=== PATIENT | male | born 1960 | race Caucasian/White ===

== ENCOUNTER 2019-01-16 05:32 | Inpatient (IN) | payer OTHER ==
[~2019-01-16] VITALS: Ht 172.7 cm; Wt 78.0 kg
--- NOTE | 2019-01-16 05:45 | NUR ---
MANAGER LSWDISTRIBUTION DRIVER NOTES Received patient from [facility] via gurney accompanied by 2 egg separator. Admitted patient to TELE 310-1 due to Seizures under the service of FINANCE EFFECTIVENESS MANAGER Shoshana Saldaña. Assisted patient comfortably to bed. Admission routine done. Belongings inventory completed by the DIRECTOR OF COUNTERINTELLIGENCE. Initial skin assessment done, photos taken and documented. Admission orders noted and carried out. Put on tele monitor with Sinus Tach noted. Initiated IVF NS @ 75ml/hr as ordered. Kept patient on bed comfortably, clean, dry and warmth. Kept bed low and locked, siderails x2 up, call light within easy reach.
[2019-01-16] MEDS ORDERED: MAGNESIUM HYDROXIDE 30 ML UDC PO PRN (06:00)
[2019-01-16] MEDS ORDERED: ZOLPIDEM TARTRATE 5 MG TABLET PO PRN (06:00)
[2019-01-16] MEDS ORDERED: Z GUARD REMEDY 2 OZ OINT TP PRN (06:00)
[2019-01-16] MEDS ORDERED: ACETAMINOPHEN 325 MG TABLET PO PRN (06:00)
[2019-01-16 06:07] VITALS: BP 137/83
[2019-01-16] MEDS: IV NS 0.9% 1,000 ML IV PRN ×2 (06:22→22:00)
--- NOTE | 2019-01-16 06:48 | NUR ---
PAINT SUPERVISOR CLOSING NOTES No complaints made at this time. Patient asleep on bed with O2 inhalation @ 3LPM to keep SpO2 > 94%. With tele monitor in place with SR at this time.
--- NOTE | 2019-01-16 07:26 | NUR ---
RN OPENING NOTE PT WAS RECEIVED IN BED AT LOWEST AND LOCKED POSITION WITH SIDE RAILS UPX2, A/O X3-4, BREATHING EVEN AND UNLABORED ON 3L VIA NC, NO CURRENT COMPLAINTS OF ANY DISTRESS OR PAIN NOTED, ON TELE MONITOR NOTED TO BE SR, IV IS PATENT AND INTACT, SAFETY PRECAUTIONS IN PLACE, CALL LIGHT WITHIN REACH, WILL MONITOR ACCORDINGLY.
[2019-01-16 07:52] LABS: BASOPHILS % (AUTO) 0.7 % (0.0-2.0); EOSINOPHILS % (AUTO) 1.3 % (0.0-6.0); HEMATOCRIT 35 % (39-51); LYMPHOCYTES # (AUTO) 0.9 /CMM (0.8-4.8); LYMPHOCYTES % (AUTO) 15.6 % (20.0-44.0); MEAN CORPUSCULAR HGB CONC 35 g/dl (31.0-36.0); MEAN CORPUSCULAR VOLUME 98 fL (80-96); MONOCYTES # (AUTO) 0.3 /CMM (0.1-1.30); MONOCYTES % (AUTO) 5.6 % (2.0-12.0); NEUTROPHILS # (AUTO) 4.4 /CMM (1.8-8.9); NEUTROPHILS % (AUTO) 76.8 % (43.0-81.0); PLATELET COUNT (AUTO) 130 /CMM (150-450); RED BLOOD CELL COUNT(AUTO) 3.53 MIL/uL (4.5-6.0); WHITE BLOOD COUNT (AUTO) 5.7 K/uL (4.3-11.0)
[2019-01-16 08:00] VITALS: BP 131/72
[2019-01-16] MEDS: FOLIC ACID 1 MG TABLET PO SCH (08:05)
[2019-01-16] MEDS: NICOTINE PATCH (21MG) 21 MG PATCH.TD24 TD SCH (08:05)
[2019-01-16] MEDS: THIAMINE HCL 100 MG TABLET PO SCH (08:05)
[2019-01-16] MEDS: LEVETIRACETAM (250 MG) 250 MG TABLET PO SCH ×2 (08:05→20:19)
[2019-01-16 08:06] LABS: CALCIUM, SERUM 7.6 mg/dL (8.5-10.1); MAGNESIUM 1.9 mg/dL (1.8-2.4); PHOSPHORUS 2.2 mg/dL (2.5-4.9)
[2019-01-16] MEDS ORDERED: NEUTRA PHOS 1 POWD.PACKET PO ONE (11:30)
[2019-01-16] MEDS: LORAZEPAM INJ 2 MG/ML VIAL IV PRN ×2 (13:27→22:09)
--- NOTE | 2019-01-16 13:28 | NUR ---
RN NOTE ATIVAN GIVEN AT THIS TIME, WILL MONITOR ACCORDINGLY
[2019-01-16 16:00] VITALS: BP 134/73
--- NOTE | 2019-01-16 18:22 | NUR ---
RN CLOSING NOTE PT IN BED AT LOWEST AND LOCKED POSITION WITH SIDE RAILS UPX2, A/O X3-4, BREATHING EVEN AND UNLABORED ON 3L VIA NC, NO CURRENT COMPLAINTS OF ANY DISTRESS OR PAIN NOTED, IV IS PATENT AND INTACT, SAFETY PRECAUTIONS IN PLACE, CALL LIGHT WITHIN REACH, ALL NEEDS ATTENDED TO, WILL ENDORSE TO REINFORCING IRON WORKER HELPER RN FOR AMADO.
--- NOTE | 2019-01-16 19:37 | NUR ---
MS/RN OPENING NOTES RECEIVED PATIENT IN BED, RESTING COMFORTABLY IN BED, CAN VERBALIZE NEEDS, SKIN WARM TO TOUCH, NO GRIMACE OR GUARDING OBSERVED AND VERBALIZED. ON ROOM AIR ALERT, ORIENTED X3, ASPIRATIONS PRECAUTIONS, STOOL WAS COLLECTED FOR CDIFF PROTOCOL. WITH RIGHT ELBOW SWOLLEN, ON CARDIAC DIET, ASPIRATIONS PRECAUTION, RIGHT SAC GAUGE 20, IV NS RUNNING AT 75 ML/HR, ON NEEDED ATIVAN FOR ANY S/S OF SEIZURES, WILL CONTINUE TO MONITOR, BED LOCKED, CALL LIGHTS WITHIN REACH. WILL MONITOR.
[2019-01-16 20:00] VITALS: BP 133/76
--- NOTE | 2019-01-16 20:40 | NUR ---
left fore arm iv inserted gauge22 after 2 attempts. successful. Patient tolerated well. Reported medication from home to follow up in am, reported pcp from [facility] with following meds: ventolin, spiriva inhaler, atorvastatin vitamin b1, folic acid, laratadine 10mg, propanol 10mg, keppra 500mg/will enter for medication to report and be reconciled.
[2019-01-16] MEDS ORDERED: ALBU18HF2 INH (20:47)
[2019-01-16] MEDS ORDERED: PROP10TA10 PO ×2 (20:53)
[2019-01-16] MEDS ORDERED: ATOR10TA PO (20:53)
[2019-01-16] MEDS ORDERED: LORA-588 PO (20:53)
[2019-01-16] MEDS ORDERED: LEVE500T9 PO (20:54)
--- NOTE | 2019-01-16 22:13 | NUR ---
MS/RN NOTES PATIENT WITH TREMORS, SHAKING, NEEDED ATIVEN 1 MG/0.5ML IVP GIVEN SLOWLY, WILL MONITOR FOR SAFETY.
--- NOTE | 2019-01-17 06:24 | NUR ---
310-1 PATIENT ABLE TO SLEEP DUTING THE NIGHT, ASSISTED TO BATHROOM, ON IV HYDRATION MONITORED FOR ANY CHANGES OR SEIZURE. KEPT COMFORTABLE. BRF LOCKED, CALL IGHTS WITHIN REACH. WILL ENDORSE TO AM RN FOR AMADO.
--- NOTE | 2019-01-17 07:07 | NUR ---
RN OPENING NOTE PT WAS RECEIVED RESTING IN BED AT LOWEST AND LOCKED POSITION WITH SIDE RAILS UPX2, A/O X3-4, BREATHING EVEN AND UNLABORED ON NC, NO S/S OF ANY DISTRESS OR PAIN NOTED, IV IS PATENT AND INTACT, SAFETY PRECAUTIONS IN PLACE, CALL LIGHT WITHIN REACH, WILL MONITOR ACCORDINGLY.
[2019-01-17 07:16] LABS: CALCIUM, SERUM 8.1 mg/dL (8.5-10.1); CREATININE 0.9 mg/dL (0.6-1.3); PHOSPHORUS 2.4 mg/dL (2.5-4.9); POTASSIUM 3.3 mmol/L (3.5-5.1)
[2019-01-17] MEDS: ONDANSETRON HCL/PF 4 MG/2 ML VIAL IVP PRN ×3 (07:35→22:41)
--- NOTE | 2019-01-17 07:39 | NUR ---
RN NOTE PATIENT GIVEN ZOFRAN AT THIS TIME DUE TO NAUSEA AND VOMITING, WILL MONITOR ACCORDINGLY.
[2019-01-17 08:00] VITALS: BP 120/78
[2019-01-17] MEDS: THIAMINE HCL 100 MG TABLET PO SCH (08:06)
[2019-01-17] MEDS: LORAZEPAM INJ 2 MG/ML VIAL IV PRN ×2 (08:06→22:40)
[2019-01-17] MEDS: LEVETIRACETAM (250 MG) 250 MG TABLET PO SCH ×2 (08:06→20:01)
[2019-01-17] MEDS: NICOTINE PATCH (21MG) 21 MG PATCH.TD24 TD SCH (08:06)
[2019-01-17] MEDS: FOLIC ACID 1 MG TABLET PO SCH (08:06)
--- NOTE | 2019-01-17 08:06 | NUR ---
RN NOTE ATIVAN GIVEN AT THIS TIME DUE TO PATIENT HAVING TREMORS, WILL MONITOR ACCORDINGLY
[2019-01-17] MEDS ORDERED: POTASSIUM CHLORIDE 20 MEQ TAB.PRT.SR PO SCH (10:00)
[2019-01-17] MEDS ORDERED: NEUTRA PHOS 1 POWD.PACKET PO ONE (11:00)
[2019-01-17] MEDS: HYDROCODONE/APAP 5/325MG 1 EACH TABLET PO PRN (11:03)
--- NOTE | 2019-01-17 11:03 | NUR ---
RN NOTE PT COMPLAIN OF RIGHT ELBOW PAIN AT THIS TIME, NORCO GIVEN, WILL MONITOR ACCORDINGLY.
[2019-01-17] MEDS: IV NS 0.9% 1,000 ML IV PRN (11:32)
[2019-01-17 16:00] VITALS: BP 143/80
--- NOTE | 2019-01-17 18:23 | NUR ---
RN CLOSING NOTE PT IN BED AT LOWEST AND LOCKED POSITION WITH SIDE RAILS UPX2, A/O X3-4, BREATHING EVEN AND UNLABORED ON 2L VIA NC, NO COMPLAINTS OF DISTRESS OR PAIN , IV IS PATENT AND INTACT, SAFETY PRECAUTIONS IN PLACE, CALL LIGHT WITHIN REACH, ALL NEEDS ATTENDED TO, WILL ENDORSE TO RIDES ATTENDANT RN FOR AMADO
--- NOTE | 2019-01-17 19:38 | NUR ---
MS/RN OPENING NOTES RECEIVED PATIENT IN BED, ABLE TO AMBULATE WITH MODERATE ASSISTANCE, PATIENT OBSERVE WEAK, AND TREMORS. WARM BLANKET PROVIDED. RESPIRATIONS EVEN AND UNLABORED, SKIN WAR, TO TOUCH. HAVING DIARRHEA, ON IV HYDRATION, WILL FOLLOW UP WITH MD. BED LOCKED, CALL LIGHTS WITHIN REACH, OFFERED AND PROVIDED FLUIDS, WILL MONITOR.RECEIVED ENDORSEMENT FROM AM RN FOR AMADO.
[2019-01-17 19:53] VITALS: BP 136/83
[2019-01-17 20:00] VITALS: BP 136/83
--- NOTE | 2019-01-17 21:07 | NUR ---
MS/RN NOTES MD CONTACTED AND INFORMED MULTIPLE BOWEL MOVEMENT, STOOL COLLECTED FOR CDIFF YESTERDAY RESULT STILL PENDING, NO NEW ORDER AT THIS TIME UNTIL RESULT RECEIVED.
--- NOTE | 2019-01-17 22:40 | NUR ---
MS/RN NOTES PATIENT WITH TREMORS, UNABLE TO RELAX, AND WITH CONSTANT NEED TO USE THE BATHROON DUE TO BOWEL MOVEMENT, ATIVAN GIVEN IVP AND ZOFRAN PATIENT HAD VOMITING EPISODEM RFA IV GAUGE 20 INSERTED, IV ON LFA REMOVED. WILL MONITOR.
--- NOTE | 2019-01-17 23:00 | NUR ---
ms/rn notes REPORTED FALL UNWITNESSED, NO GRIMACE OR BRUISES, NO PAIN REPORTED AND OBSERVED, MD MADE AWARE, TO FOLLOW UP.ORDERED FOR SITTER AND CNAGED ATIVAN DOSE.
--- NOTE | 2019-01-17 23:40 | NUR ---
patient temperature elevated, applie cooling measure, tyleno 650mg po given ny mouth. monitored.
[2019-01-18 00:03] LABS: BASOPHILS # (AUTO) 0.1 /CMM (0.0-0.2); BASOPHILS % (AUTO) 0.6 % (0.0-2.0); EOSINOPHILS % (AUTO) 0.2 % (0.0-6.0); HEMATOCRIT 38 % (39-51); HEMOGLOBIN 12.8 g/dL (13.5-17.5); MEAN CORPUSCULAR HGB CONC 34 g/dl (31.0-36.0); MEAN CORPUSCULAR VOLUME 98 fL (80-96); MONOCYTES # (AUTO) 0.6 /CMM (0.1-1.30); MONOCYTES % (AUTO) 5.9 % (2.0-12.0); NEUTROPHILS % (AUTO) 84.3 % (43.0-81.0); PLATELET COUNT (AUTO) 75 /CMM (150-450); RED BLOOD CELL COUNT(AUTO) 3.84 MIL/uL (4.5-6.0); WHITE BLOOD COUNT (AUTO) 10.6 K/uL (4.3-11.0)
[2019-01-18 00:12] LABS: CALCIUM, SERUM 8.1 mg/dL (8.5-10.1); CREATININE 1.3 mg/dL (0.6-1.3); POTASSIUM 3.5 mmol/L (3.5-5.1)
[2019-01-18] MEDS: LORAZEPAM INJ 2 MG/ML VIAL IV PRN ×2 (00:19→08:15)
[2019-01-18 01:13] LABS: LYMPHOCYTES % (MANUAL) 10 % (16-48); MONOCYTES % (MANUAL) 3 % (0-11.0); NEUTROPHILS % (MANUAL) 87 (42-76)
[2019-01-18 06:20] LABS: BASOPHILS % (AUTO) 0.5 % (0.0-2.0); EOSINOPHILS % (AUTO) 0.1 % (0.0-6.0); HEMATOCRIT 34 % (39-51); HEMOGLOBIN 11.8 g/dL (13.5-17.5); LYMPHOCYTES # (AUTO) 0.8 /CMM (0.8-4.8); LYMPHOCYTES % (AUTO) 8.1 % (20.0-44.0); MEAN CORPUSCULAR HGB CONC 35 g/dl (31.0-36.0); MEAN CORPUSCULAR VOLUME 98 fL (80-96); MONOCYTES # (AUTO) 0.7 /CMM (0.1-1.30); MONOCYTES % (AUTO) 7.3 % (2.0-12.0); NEUTROPHILS # (AUTO) 7.9 /CMM (1.8-8.9); PLATELET COUNT (AUTO) 66 /CMM (150-450); RED BLOOD CELL COUNT(AUTO) 3.49 MIL/uL (4.5-6.0); WHITE BLOOD COUNT (AUTO) 9.4 K/uL (4.3-11.0)
--- NOTE | 2019-01-18 06:30 | NUR ---
MS/RN NOTES PATIENT IN BED, RESTING COMFORTABLY WITH SITTER, PATIENT REQUIRE ASSISTANCE DUE TO ALCOHOL WITHRAWAL AND S/P FALL, WITH USE OF NEEDED ATIVAN, WEAK, AND TREMORS, WITH ONGOING CONCERN AND LOOSE BM, BED LOCKED CALL LIGTHS WITHIN REACH WILL ENDORSE TO AM RN FOR AMADO.
[2019-01-18 06:45] LABS: CALCIUM, SERUM 8.1 mg/dL (8.5-10.1); CREATININE 1.2 mg/dL (0.6-1.3); PHOSPHORUS 2.8 mg/dL (2.5-4.9); POTASSIUM 3.1 mmol/L (3.5-5.1)
--- NOTE | 2019-01-18 07:21 | NUR ---
RN OPENING NOTE PT WAS RECEIVED IN BED AT LOWEST AND LOCKED POSITION WITH SIDE RAILS UP X2, A/OX3 , BREATHING EVEN AND UNLABORED ON RA, NO CURRENT S/S OF ANY DISTRESS OR PAIN, IV IS PATENT AND INTACT, SITTER PRESENT AT BEDSIDE DUE TO REPORTED UNWITNESSED FALL LAST NIGHT ACCORDING TO WELDER EXPERIMENTAL RNJoshDIFF RESULTS STILL PENDING, SAFETY PRECAUTIONS IN PLACE, CALL LIGHT WITHIN REACH, WILL MONITOR ACCORDINGLY.
[2019-01-18 08:00] VITALS: BP 124/64
[2019-01-18] MEDS: NICOTINE PATCH (21MG) 21 MG PATCH.TD24 TD SCH (08:14)
[2019-01-18] MEDS: LEVETIRACETAM (250 MG) 250 MG TABLET PO SCH ×2 (08:14→22:07)
[2019-01-18] MEDS: FOLIC ACID 1 MG TABLET PO SCH (08:14)
[2019-01-18] MEDS: THIAMINE HCL 100 MG TABLET PO SCH (08:14)
[2019-01-18] MEDS: POTASSIUM CHLORIDE 20 MEQ TAB.PRT.SR PO SCH ×2 (09:51→10:45)
--- NOTE | 2019-01-18 10:53 | NUR ---
WOUND CARE CONSULT: PT PRESENTS WITH DRY ABRASIONS TO EARS AND RT ELBOW SWELLING WITH REDNESS, PRESENT ON ADMISSION. DEFER TO MD FOR ELBOW. RECOMMENDATIONS MADE FOR SKIN PROTECTION. DISCUSSED WITH NURSING STAFF. PT UP WITH P.T. AT THIS TIME. WILL SEE PRN.
--- NOTE | 2019-01-18 12:14 | NUR ---
Social service consult requested by LIAM Saldaña for living alone and ETOH abuse. Pt. is a 58 year old male who was admitted to [facility] for alcohol withdrawal. SW met with pt. bedside. Pt. was laying down in his bed. Pt. looks disheveled. Pt. displayed difficulties communicating and appeared to be withdrawing. Pt. appeared confused at times and was alert to person and place. Pt. states that he lives alone at [address], [place] [address]. His contact number is . Patients emergency contact is his son Aiden Viera at . SW inquired with patient regarding his alcohol use. Pt. stated that he consumes About a 12pk of beer each day. Pt. also states he drinks liquor ( rum and coke) when he has enough money to afford it. Pt. states that he has been drinking since he was 7 years old and last attended a treatment program about 5 years ago in [place]. Pt. states he also uses cigarettes, and smokes one and half pack a day. Pt. states he has a mental health diagnosis of depression and anxiety, and is receiving mental health care from his primary health care provider. Pt. denies suicidal ideation at this time. SW encouraged Pt. to go to a treatment program but Pt. states that he is not ready to participate in treatment, and declined further treatment services and referrals at this moment. hardboard factory worker will provide the following referrals: [facility], [address] [address], [facility], [address] [facility], [facility] [address], and [facility], [address] [place], [address]. in case pt. has more motivation for treatment.
--- NOTE | 2019-01-18 14:43 | NUR ---
RN NOTE RECEIVED A CALL FROM [facility] THAT PT IS POSITIVE FOR C.DIFF. ISOLATION PRECAUTIONS IMPLEMENTED, WILL MONITOR ACCORDINGLY.
--- NOTE | 2019-01-18 14:55 | NUR ---
RN NOTE DR. MIRZA PAGED AT THIS TIME. ORDER RECEIVED FOR FLAGYL 500MG Q8H PO. WILL IMPLEMENT ORDER AND CARRYOUT ACCORDINGLY.
[2019-01-18 16:00] VITALS: BP 119/58
[2019-01-18] MEDS: IV NS 0.9% 1,000 ML IV PRN (17:59)
--- NOTE | 2019-01-18 18:11 | NUR ---
RN CLOSING NOTE PT IN BED AT LOWEST AND LOCKED POSITION WITH SIDE RAILS UP X2, A/OX3 BREATHING EVEN AND UNLABORED, NO S/S OF ANY DISTRESS OR PAIN, IV IS PATENT AND INTACT, SITTER PRESENT AT BEDSIDE, PATIENT TESTED POSITIVE FOR C.DIFF AND ON ISOLATION, SAFETY PRECAUTIONS IN PLACE, CALL LIGHT WITHIN REACH, WILL ENDORSE TO ENRICHMENT TEACHER RN FOR AMADO.
--- NOTE | 2019-01-18 19:50 | NUR ---
MS RN NOTE: PATIENT RESTING IN BED, NO ACUTE DISTRESS NOTE, SITTER AT BEDSIDE. BREATHING EVEN AND UNLABORED, NO SOB NOTED. IV TO LFA IN PLACE. ISOLATION PRECAUTIONS OBSERVED. BED LOCKED AND IN LOWEST POSITION, CALL LIGHT IN REACH. WILL CONTINUE TO MONITOR.
[2019-01-18 20:15] VITALS: BP 107/69
[2019-01-18] MEDS: METRONIDAZOLE 500 MG TABLET PO SCH (22:07)
--- NOTE | 2019-01-19 04:15 | NUR ---
MS RN NOTE: PATIENT ACCIDENTALLY PULLED OUT IV TO LFA WHEN GETTING OUT OF BED. COVERED WITH GAUZE, PRESSURE APPLIED, AND SECURED WITH TAPE. NEW IV STARTED TO RFA #20 WITH GOOD BLOOD RETURN. WILL CONTINUE TO MONITOR.
[2019-01-19] MEDS: METRONIDAZOLE 500 MG TABLET PO SCH ×3 (05:43→21:28)
[2019-01-19] MEDS: IV NS 0.9% 1,000 ML IV PRN ×2 (05:44→17:23)
--- NOTE | 2019-01-19 06:30 | NUR ---
MS RN NOTE: PATIENT RESTING IN BED, NO ACUTE DISTRESS NOTE, SITTER AT BEDSIDE. BREATHING EVEN AND UNLABORED, NO SOB NOTED. IV TO LFA IN PLACE. ISOLATION PRECAUTIONS OBSERVED. BED LOCKED AND IN LOWEST POSITION, CALL LIGHT IN REACH. WILL ENDORSE TO DAY NURSE TO CONTINUE WITH PLAN OF CARE.
[2019-01-19 07:19] LABS: BASOPHILS % (AUTO) 0.5 % (0.0-2.0); EOSINOPHILS % (AUTO) 1.8 % (0.0-6.0); HEMATOCRIT 35 % (39-51); LYMPHOCYTES # (AUTO) 0.7 /CMM (0.8-4.8); LYMPHOCYTES % (AUTO) 15.4 % (20.0-44.0); MEAN CORPUSCULAR HGB CONC 35 g/dl (31.0-36.0); MEAN CORPUSCULAR VOLUME 98 fL (80-96); MONOCYTES # (AUTO) 0.8 /CMM (0.1-1.30); MONOCYTES % (AUTO) 16.9 % (2.0-12.0); NEUTROPHILS # (AUTO) 3.1 /CMM (1.8-8.9); NEUTROPHILS % (AUTO) 65.4 % (43.0-81.0); PLATELET COUNT (AUTO) 66 /CMM (150-450); RED BLOOD CELL COUNT(AUTO) 3.53 MIL/uL (4.5-6.0); WHITE BLOOD COUNT (AUTO) 4.7 K/uL (4.3-11.0)
[2019-01-19 07:33] LABS: CALCIUM, SERUM 8.4 mg/dL (8.5-10.1); CREATININE 0.9 mg/dL (0.6-1.3); POTASSIUM 3.1 mmol/L (3.5-5.1)
[2019-01-19 08:00] VITALS: BP_SYST 130; BP_DIAS 59; BP_DIAS 69
--- NOTE | 2019-01-19 08:00 | NUR ---
MS RN NOTE: PATIENT RESTING IN BED, DENIES PAIN AND IN NO ACUTE DISTRESS NOTED, SITTER AT BEDSIDE. BREATHING EVEN AND UNLABORED, NO SOB NOTED. IV TO RFA IN PLACE. C DIFF CONTACT ISOLATION PRECAUTIONS OBSERVED. BED LOCKED AND IN LOWEST POSITION, CALL LIGHT IN REACH. WILL CONTINUE WITH PLAN OF CARE.
[2019-01-19] MEDS: LEVETIRACETAM (250 MG) 250 MG TABLET PO SCH ×2 (09:11→21:28)
[2019-01-19] MEDS: THIAMINE HCL 100 MG TABLET PO SCH (09:11)
[2019-01-19] MEDS: FOLIC ACID 1 MG TABLET PO SCH (09:11)
[2019-01-19] MEDS: NICOTINE PATCH (21MG) 21 MG PATCH.TD24 TD SCH (09:12)
--- NOTE | 2019-01-19 11:00 | NUR ---
SEEN BY Briseida WHO STATED THAT THE PT NEEDS CONTACT GUARD ASSIST WITH AMBULATION. PT HAS A BEDSIDE COMMODE WELL.WILL MONITOR.
[2019-01-19] MEDS: POTASSIUM CHLORIDE 20 MEQ TAB.PRT.SR PO SCH ×2 (11:38→12:36)
[2019-01-19 13:40] LABS: BAND % (MANUAL) 1 % (0.0-5.0); EOSINOPHILS % (MANUAL) 1 % (0-4); LYMPHOCYTES % (MANUAL) 16 % (16-48); MONOCYTES % (MANUAL) 12 % (0-11.0); NEUTROPHILS % (MANUAL) 69 (42-76); REACTIVE LYMPHOCYTES 1 % (0-0)
[2019-01-19 16:00] VITALS: BP 122/76
[2019-01-19] MEDS: CLOTRIMAZOLE 1% 15 GM TUBE TP SCH (16:17)
[2019-01-19 20:00] VITALS: BP_SYST 121; BP_DIAS 71; BP_DIAS 75
--- NOTE | 2019-01-19 20:00 | NUR ---
rn pm opening note. pt in bed denies pain, no acute distress noted sitter at the bedside. breathing unlabored, contact isolation being observed bed down locked low position. call light in reach.
--- NOTE | 2019-01-19 20:29 | NUR ---
RN REASSIGNMENT. PATIENT ENDORSED TO EVANS ESPANA.
--- NOTE | 2019-01-19 20:30 | NUR ---
RN NOTES RECEIVED PATIENT IN BED, ALERT AND ORIENTED X4, STABLE ON ROOM AIR, DENIES ANY PAIN AT THIS TIME, AMBULATORY WITH SUPERVISION, FALL PRECAUTION, ENTERIC CONTACT PRECAUTION MAINTAINED DUE TO HX OF CDIFF, HAD X1 LOOSE BM AT START OF SHIFT, ON FLAGYL PO, SITTER AT THE BEDSIDE FOR SAFETY
[2019-01-20] MEDS: HYDROCODONE/APAP 5/325MG 1 EACH TABLET PO PRN (00:10)
[2019-01-20] MEDS: METRONIDAZOLE 500 MG TABLET PO SCH ×2 (05:23→12:42)
[2019-01-20] MEDS: IV NS 0.9% 1,000 ML IV PRN (05:24)
--- NOTE | 2019-01-20 06:28 | NUR ---
01/20/19 PM SHIFT PATIENT IS ALERT AND ORIENTED X3, ON ROOM AIR, COMPLIANT OF MEDICATION, BM X1, LIQUID STOOL, REMAINED ON ENTERIC CONTACT ISOLATION DUE TO HX OF CDIFF, FLAGYL PO, IVF AT 75 CC/HR, HR 84, WEAKNESS ON AMBULATION. PER PATIENT REFUSED REHAB HAS HX OF ETOH ABUSE, PER POC, MAY DC WHEN TACHYCARDIA AND TREMORS HAVE RESOLVED
[2019-01-20] MEDS: LORAZEPAM INJ 2 MG/ML VIAL IV PRN (06:43)
--- NOTE | 2019-01-20 06:44 | NUR ---
RN NOTES PATIENT IS ANXIOUS, GIVEN ATIVAN 2 MG IVP. ATIVAN 1 MG OUT OF 2MG VIAL INADVERTENTLY WASTED WITH ANOTHER RN, ACTUAL DOSE IS ATIVAN 2 MG, TONJA OF PHARMACY NOTIFIED.
[2019-01-20 06:52] LABS: BASOPHILS % (AUTO) 0.6 % (0.0-2.0); EOSINOPHILS % (AUTO) 2.6 % (0.0-6.0); HEMATOCRIT 35 % (39-51); HEMOGLOBIN 12.1 g/dL (13.5-17.5); LYMPHOCYTES % (AUTO) 25.3 % (20.0-44.0); MEAN CORPUSCULAR HGB CONC 35 g/dl (31.0-36.0); MEAN CORPUSCULAR VOLUME 98 fL (80-96); NEUTROPHILS # (AUTO) 1.8 /CMM (1.8-8.9); NEUTROPHILS % (AUTO) 46.5 % (43.0-81.0); PLATELET COUNT (AUTO) 80 /CMM (150-450); RED BLOOD CELL COUNT(AUTO) 3.54 MIL/uL (4.5-6.0); WHITE BLOOD COUNT (AUTO) 3.9 K/uL (4.3-11.0)
[2019-01-20 07:04] LABS: CALCIUM, SERUM 8.4 mg/dL (8.5-10.1); CREATININE 0.8 mg/dL (0.6-1.3); MAGNESIUM 1.6 mg/dL (1.8-2.4); POTASSIUM 3.1 mmol/L (3.5-5.1)
--- NOTE | 2019-01-20 08:00 | NUR ---
MS RN NOTE: PATIENT RESTING IN BED, DENIES PAIN AND IN NO ACUTE DISTRESS NOTED, SITTER AT BEDSIDE. BREATHING EVEN AND UNLABORED, NO SOB NOTED. IV TO RFA IN PLACE WITH IVF OF NS AT 75 ML/HR INFUSING WELL. C DIFF CONTACT ISOLATION PRECAUTIONS OBSERVED. BED LOCKED AND IN LOWEST POSITION, AMBULATED WITH P.T. USING FWW WITH STEADY GAIT.CALL LIGHT IN REACH. WILL CONTINUE WITH PLAN OF CARE.
--- NOTE | 2019-01-20 08:10 | NUR ---
PT SCRATCHES HIS SKIN SO HARD DUE TO DRYNESS AND MADE HIS LEFT INNER FOOT BLEED.APPLIED LOTRIMIN CREAM TO AFFECTED AREAS BUT PT SCRATCHES HIS SKIN SO HARD.PT TEACHING DONE TO STOP SCRATCHING HIS SKIN TOO HARD.PT CONTINUES TO SCRATCH HIS SKIN INSPITE OF REINFORCED TEACHING GIVEN.
[2019-01-20] MEDS: THIAMINE HCL 100 MG TABLET PO SCH (08:41)
[2019-01-20] MEDS: NICOTINE PATCH (21MG) 21 MG PATCH.TD24 TD SCH (08:41)
[2019-01-20] MEDS: LEVETIRACETAM (250 MG) 250 MG TABLET PO SCH (08:41)
[2019-01-20] MEDS: FOLIC ACID 1 MG TABLET PO SCH (08:41)
[2019-01-20 08:45] LABS: EOSINOPHILS % (MANUAL) 1 % (0-4); LYMPHOCYTES % (MANUAL) 29 % (16-48); MONOCYTES % (MANUAL) 17 % (0-11.0); NEUTROPHILS % (MANUAL) 53 (42-76)
[2019-01-20] MEDS: CLOTRIMAZOLE 1% 15 GM TUBE TP SCH (09:15)
[2019-01-20] MEDS ORDERED: METR500T PO (10:23)
[2019-01-20] MEDS ORDERED: CLOT15CR35 TP (10:23)
[2019-01-20] MEDS ORDERED: CHLO25CA22 PO (10:23)
[2019-01-20] MEDS ORDERED: Thiamine HCL PO (10:23)
[2019-01-20] MEDS ORDERED: POTA10CA43 PO (10:23)
[2019-01-20] MEDS ORDERED: Magnesium 1GM/D5W 100ML PREMIX 100 ML IV SCH (10:40)
[2019-01-20] MEDS: POTASSIUM CHLORIDE 20 MEQ TAB.PRT.SR PO SCH ×2 (11:29→12:42)
[2019-01-20] MEDS ORDERED: MAGNESIUM OXIDE 400 MG TABLET PO ONE (11:30)
--- NOTE | 2019-01-20 13:59 | NUR ---
DISCHARGED PT HOME WITH STABLE V/S ACCOMPANIED BY HIS SISTER,MAGNUS VIA PRIVATE CAR.SENT FWW WITH PT.DISCHARGE INSTRUCTIONS ABOUT SAFETY AND HEALTH TEACHING GIVEN.PT REFUSED TO BE SENT TO REHAB INSPITE OF EXPLAINING ITS RISKS AND BENEFITS-PT INSISTS TO REFUSED.PT VERBALIZED GIVING HAVING HIS SONS TAKING TURNS IN TAKING CARE OF HIM INCLUDING HIS SISTER.IV H/L REMOVED TO RFA WITH NO BLEEDING NOTED.PRESCRIPTIONS GIVEN TO PT'S SISTER,MAGNUS.
== END 2019-01-20 13:51 | disposition home or self-care (01) | DRG 248 ==
LOC: TELE 05:32 → UNDOADMOB 05:32 → TELE 08:08 → MED 08:08 → TELE 15:40 → EDSTATUS 01-19 16:50 → MED 01-19 17:36
PROVIDERS: ADMIT Family Medicine; ATTEND Registered Nurse
DX: A04.72 Enterocolitis due to Clostridium difficile, not specified as recurrent (principal); F10.231 Alcohol dependence with withdrawal delirium; F14.11 Cocaine abuse, in remission; F10.229 Alcohol dependence with intoxication, unspecified; G40.509 Epileptic seizures related to external causes, not intractable, without status epilepticus; E78.5 Hyperlipidemia, unspecified; Y90.9 Presence of alcohol in blood, level not specified; I10 Essential (primary) hypertension; Z72.0 Tobacco use; Z98.890 Other specified postprocedural states; Z82.49 Family history of ischemic heart disease and other diseases of the circulatory system; Z82.3 Family history of stroke; E87.6 Hypokalemia
CPT/HCPCS: 36415; 80048-TC; 80061-TC; 83735-TC; 84100-TC; 85025-TC; 87081-TC; 97110-TC; 97116-TC; 97530-TC; A6402; A6403; G0378; J2060; J2405; J7030